=== PATIENT | male | born 1985 ===

== ENCOUNTER 2017-08-16 10:25 | Emergency (ER) | payer SELFPAY ==
[2017-08-16 10:58] VITALS: BP 119/77
--- NOTE | 2017-08-16 12:39 | UC ---
Ailin Cuello Gabriel, scribed for Tommy Tobar MD on 08/16/17 at 1122 . Respiratory Complaint HPI - HPI Summary HPI Summary: This patient is a 32 year old M presenting to [facility] [place] with a chief complaint of cough and fever that began ten days ago. The cough just started to become productive. Patient reports post nasal drip and trouble sleeping. Fever was treated successfully with garlic and Echinacea. Hx seasonal allergies no hx of asthma. He has tried Claritin without relief. - History of Current Complaint Chief Complaint: UCGeneralIllness Stated Complaint: COLD SX Time Seen by Provider: 08/16/17 11:10 Hx Obtained From: Patient Onset/Duration: Lasting Days - 10, Still Present Timing: Constant Severity Initially: Moderate Severity Currently: Moderate Pain Intensity: 0 Pain Scale Used: 0-10 Numeric Character: Cough: Nonproductive, Cough: Productive Associated Signs And Symptoms: Positive: Fever - Allergies/Home Medications Allergies/Adverse Reactions: Allergies Allergy/AdvReac Type Severity Reaction Status Date / Time No Known Allergies Allergy Verified 08/16/17 10:53 PMH/Surg Hx/FS Hx/Imm Hx Respiratory History: Other Other Respiratory History: seasonal allergies Other History Of: Negative For: HIV, Hepatitis B - Surgical History Surgical History: None - Family History Known Family History: Positive: Hypertension Negative: Diabetes, Renal Disease, Respiratory Disease - Social History Occupation: Employed Full-time Lives: With Family Alcohol Use: None Substance Use Type: None Smoking Status (MU): Never Smoked Tobacco Review of Systems Constitutional: Fever - resolved, Other - trouble sleeping ENT: Other - post nasal drip Respiratory: Cough All Other Systems Reviewed And Are Negative: Yes Physical Exam - Summary Physical Exam Summary: General: well-appearing, no pain distress Skin: warm, color reflects adequate perfusion, dry Head: normal Eyes: EOMI, DEWAYNE ENT: positive rhinorrhea, posterior pharynx is erythematous Neck: supple, nontender Respiratory: dry cough, occasional wheeze on exam Cardiovascular: RRR Abdomen: soft, nontender Bowel: present Musculoskeletal: normal, strength/ROM intact Neurological: sensory/motor intact, A&O x3 Psychological: affect/mood appropriate Triage Information Reviewed: Yes Vital Signs: Initial Vital Signs Temp 99.3 F 08/16/17 10:54 Pulse 83 08/16/17 10:54 Resp 18 08/16/17 10:54 BP 119/77 08/16/17 10:54 Pulse Ox 97 08/16/17 10:54 Vital Signs Reviewed: Yes UC Diagnostic Evaluation - Laboratory O2 Sat by Pulse Oximetry: 97 Respiratory Course/Dx - Course Course Of Treatment: DISCUSSED VIRAL VERSE BACTERIAL INFECTION. THE PATIENT PREFERS TO START ANTIBIOTICS. F/U PMD; RECHECK SOONER IF WORSE. - Differential Dx/Diagnosis Provider Diagnoses: BRONCHITIS WITH BRONCHOSPASM Discharge - Sign-Out/Discharge Documenting (check all that apply): Discharge/Admit/Transfer - Discharge Plan Condition: Stable Disposition: HOME Prescriptions: Albuterol HFA INHALER* [Ventolin HFA Inhaler*] 2 puff INH Q4H PRN #1 mdi PRN Reason: Shortness Of Breath Azithromyxin SAUL (NF) [Z-Saul (Zithromax) 250 mg tabs #6] 2 tab PO .TODAY, THEN 1 DAILY #6 tab Patient Education Materials: Acute Bronchitis (ED), Bronchospasm (ED) Referrals: [facility] [place] [facility]IAN REFERRAL [Outside] Additional Instructions: FOLLOW UP WITH YOUR DOCTOR. YOU CAN USE AN OVER THE COUNTER COUGH MEDICATION SUCH ROBITUSSIN DM TO HELP DECREASE THE COUGH. GET RECHECKED FOR ANY WORSENING OF YOUR CONDITION OR QUESTIONS OR CONCERNS. - Billing Disposition and Condition Condition: STABLE Disposition: Home The documentation as recorded by the Ailin alfaro Gabriel accurately reflects the service I personally performed and the decisions made by me, Tommy Tobar MD.
== END 2017-08-16 11:27 | disposition home or self-care (01) ==
LOC: UCEAST 10:25
DX: J40 Bronchitis, not specified as acute or chronic (principal); R50.9 Fever, unspecified; J98.01 Acute bronchospasm
CPT/HCPCS: 99201; G0463